=== PATIENT | male | born 1965 ===

== ENCOUNTER 2022-09-18 15:02 | Emergency (ER) | payer BC ==
[~2022-09-18] VITALS: Ht 185.4 cm; Wt 113.6 kg
[2022-09-18 15:04] VITALS: TEMP 98.8
[2022-09-18] MEDS ORDERED: NORCO 325 MG-51 TAB PO (15:28)
[2022-09-18] MEDS ORDERED: FLEXERIL 1010 MG/TAB PO (15:28)
[2022-09-18] MEDS ORDERED: PREDNISONE20 MG PO (15:28)
[2022-09-18 16:26] VITALS: BP 161/86; PULSE 72
== END 2022-09-18 16:26 | disposition home or self-care (01) ==
LOC: COL.ER 15:02
DX: M54.42 Lumbago with sciatica, left side (principal); X50.0XXA Overexertion from strenuous movement or load, initial encounter
CPT/HCPCS: J2360; J3010; J7512